=== PATIENT | female | born 1940 | race Caucasian/White ===

== ENCOUNTER → 2021-07-22 | Outpatient (CLI) | payer MEDICARE ==
[2021-07-22 18:24] LABS: Basophils # (A) 0.07 X 10*3/uL (0.00-0.10); Basophils % (A) 1.2 %; Eosinophils # (A) 0.25 X 10*3/uL (0.04-0.35); Eosinophils % (A) 4.2 %; HCT 40.2 % (37.2-46.3); HGB 12.5 g/dL (12.0-15.0); Immature Grans, Automated 0.3 %; Lymphocytes # (A) 0.95 X 10*3/uL (0.90-5.00); Lymphocytes % (A) 15.9 %; MCHC 31.1 g/dL (32.0-37.0); MCV 89.9 fL (80.0-97.0); Mean Platelet Volume 9.8 fL (9.5-12.2); Monocytes # (A) 0.56 X 10*3/uL (0.20-1.00); Monocytes % (A) 9.4 %; NRBC Per 100 WBC 0 /100 WBCS (0.0-0.0); Neutrophils # (A) 4.13 X 10*3/uL (1.80-7.70); Platelet Count 341 X 10*3/uL (140-440); RBC 4.47 X 10*6/uL (4.10-5.20); RDW 14.2 % (11.5-14.5); WBC 5.98 X 10*3/uL (4.50-10.00)
[2021-07-22 20:17] LABS: African American GFR (CKD) 81.3 (60.0-200.0); Anion Gap 13.6 mmol/L (10.00-18.00); Blood Urea Nitrogen 16.2 mg/dL (9.0-27.0); Carbon Dioxide 25.4 mmol/L (20.0-27.5); Non-African American GFR(CKD) 70.1 (60.0-200.0); Potassium 5.2 mmol/L (3.5-5.5)
== END | disposition home or self-care (01) ==
LOC: LABPAT 11:36
PROVIDERS: ATTEND Obstetrics & Gynecology
DX: Z01.812 Encounter for preprocedural laboratory examination (principal); I10 Essential (primary) hypertension; N81.11 Cystocele, midline
CPT/HCPCS: 80051; 82565; 82947; 84520; 85025; 87086

== ENCOUNTER 2021-07-30 06:31 | Day surgery (SDC) | payer MEDICARE ==
[2021-07-25 16:11] VITALS: BMI 25.4
[~2021-07-30 06:31] MED LIST: LIDOCAINE 1% (10MG/ML) FOR IV START INTRADERMA PRN; ONDANSETRON 4 MG/2 ML VIAL IVP ONE
[2021-07-30] MEDS ORDERED: HYDROmorphone 0.5 MG/0.5 ML SYRINGE IVP PRN (07:00)
[2021-07-30] MEDS: LACTATED RINGERS 1,000 ML IV SCH ×2 (07:17→10:53)
[2021-07-30] MEDS ORDERED: MIDAZOLAM 2 MG/2 ML VIAL ONE (07:43)
[2021-07-30] MEDS ORDERED: MORPHINE SULFATE (PF) 0.3 MG/0.3 ML SYR ONE (07:43)
[2021-07-30] MEDS ORDERED: fentaNYL (PF) 50 MCG/ML 2 ML AMP ONE (07:43)
[2021-07-30] MEDS ORDERED: PROPOFOL 10 MG/ML 20 ML VIAL IV ONE (07:43)
[2021-07-30] MEDS ORDERED: VASOPRESSIN 20 UNIT/ML 1 ML VIAL SQ ONE ×2 (08:06)
[2021-07-30] MEDS ORDERED: BACITRACIN ZINC 500 UNIT/GM OINT 28.4 GM TUBE TOPICAL ONE (08:10)
[2021-07-30] MEDS ORDERED: IBUPROFEN 600 MG TAB PO PRN (08:58)
[2021-07-30] MEDS ORDERED: KETOROLAC 30 MG/ML 1 ML VIAL IVP PRN (08:58)
[2021-07-30] MEDS ORDERED: ONDANSETRON 4 MG/2 ML VIAL IVP PRN (08:58)
[2021-07-30] MEDS ORDERED: diphenhydrAMINE 50 MG/ML 1 ML VIAL IVP PRN (08:58)
[2021-07-30] MEDS ORDERED: SIMETHICONE 80 MG CHEWABLE PO PRN (08:58)
--- NOTE | 2021-07-30 08:58 | P.OP ---
Date of Procedure: 07/30/21 Preoperative Diagnosis: Increasingly symptomatic grade 4 uterine prolapse, grade 3 cystocele. Postoperative Diagnosis: Same, normal-appearing left ovary Procedure(s) Performed: Vaginal hysterectomy, anterior colporrhaphy Anesthesia: ANDREASA Surgeon: Yoana Maher Mainframe Systems Engineer #1: Maki Driver Estimated Blood Loss (ml): 20 IV fluids (ml): 500 Urine output (ml): 100 Pathology: other (Cervix and uterus) Condition: stable Disposition: PACU Operative Findings: Normal-appearing left ovary. Right ovary surgically absent. Small asymptomatic rectocele Description of Procedure: Patient is brought to the operating suite where a general anesthetic is administered after the patient is given a spinal with Duramorph. She's placed in the dorsal lithotomy position. Antibiotics were given. The appropriate timeout was performed to assure proper patient and procedural identification. Perineal body is prepped and draped in usual sterile fashion. Weighted speculum was placed into the vagina. Bladder is drained for approximately 100 mL of clear yellow urine. The cervix is grasped with a double-tooth tenaculum and the cervix is injected circumferentially with a dilute Pitressin solution. Childress blade scalpel is used to incise the mucosa circumferentially with a V positioning at 6:00. Sponge rolled finger is used to sweep the mucosa away from the underlying fascial plane, and at all times the mucosa is swept high to avoid bladder and/or ureteral injury. Peritoneum is entered at 6:00 with a Metzenbaum scissor, suture tied with 2-0 Vicryl, and the large billed speculum is placed. The right uterosacral ligament is identified, clamped cut and suture ligated. It is held laterally with a hemostat. Same procedure is carried out contralaterally. Uterine vasculature is skeletonized, clamped cut and suture ligated. Uterus is then "walked out" posteriorly. Anterior peritoneum is entered at 12:00. Jenni clamps are used around the final pedicles and the cervix and uterus are removed and sent to pathology for evaluation. Vicryl sutures used now in a Gianni stitch to tie insecure, flashed, and retied a pedicles for excellent hemostasis. The right ovary has been surgically removed, the left ovary appears atrophic and left in situ per the patient's wishes. The speculum is then switched to the shallow billed speculum. The 2-0 Vicryl suture at 6:00 is brought around in a pursestring fashion to close the peritoneum. Hemostasis again is excellent. The uterosacral cardinal ligaments on now brought across to incorporate the opposite ligament as well as vaginal mucosa. 2 additional [id number] sutures are used of 0 Vicryl to close the vaginal cough. Allis clamps are used on the anterior most portion and the cystocele repair is commenced. The same dilute Pitressin solution is used to inject the mucosa in the midline to approximately 1.5 cm inferior to the urethra. Sponge rolled finger is used to sweep the underlying fascial edge from the overlying mucosa. King catheter is placed, urine is clear. 2-0 Vicryl sutures used in an interrupted fashion now to bring the fascial edges together to completely obliterate the cystocele. Metzenbaum scissors are used to trim the mucosa. 2-0 Vicryl sutures used in a running locking stitch to close the mucosa. Hemostasis is excellent. Vagina is packed with one-inch iodophor gauze with basic tracing. King is noted to be draining clear urine. All sponge needle and enhancement counts are correct. Patient is brought back to recovery room in excellent condition with stable vital signs including blood pressure 115/51, pulse 64, 100% O2 saturation.
[2021-07-30 16:34] VITALS: RESP 16
[2021-07-30] MEDS ORDERED: amLODIPine 5 MG TAB PO STA ×2 (16:34→21:01)
[2021-07-30] MEDS ORDERED: KETOROLAC 15 MG/ML 1 ML VIAL IVP PRN (16:41)
[2021-07-31] MEDS: LACTATED RINGERS 1,000 ML IV SCH (06:45)
--- NOTE | 2021-07-31 07:32 | P.PN ---
Progress Note - Text Progress Note Date: 07/31/21 (271) Anesthesia Postop day 1 Subjective: Status Post section with Duramorph. Patient seen and examined. Doing well without complaint. VAS 0. Denies pruritus and nausea. Had some vomiting yesterday which resolved with medications.. Afebrile. Gross lower extremity strength intact. . Without apparent anesthetic complications. Objective: Vital signs reviewed Heart: Regular Rate Lungs: Good chest excursion Abdomen: Appears nondistended Assessment: Status post with Duramorph postop day 1 Plan: Continue current care with your medical management.
--- NOTE | 2021-07-31 08:19 | P.DS ---
Providers Date of admission: 07/30/21 Expected date of discharge: 07/31/21 Attending physician: Yoana Maher Primary care physician: Stated None Hospital Course: This is a 80-year-old female who presented with increasingly symptomatic uterine prolapse and cystocele for surgical repair. Option of pessary was discussed and declined. Preoperative clearance was given. Please see dictated history and physical for details. Yesterday patient underwent a vaginal hysterectomy and anterior colporrhaphy. She did well intraoperatively. The left ovary appeared normal, right ovary surgically absent. Please see dictated operative note for details. This morning the patient is doing well. King catheter and vaginal packing had been removed. Patient had some confusion last night but appears well oriented this morning. Extremities are negative. Chest is clear. Norvasc 5 mg twice a day has been reinstituted. Patient is judged to be in good condition for discharge home pending successful bladder training. She will follow-up with me in the office in 2 weeks. I have reminded her no intercourse, tampons or douching. She will use [id number] Advil or Aleve, or Motrin as needed for pain. She will call with any fevers shakes or chills, foul smelling or copious lochia, with any vaginal bleeding, or any pain not alleviated by [id number] products. No driving for 2 weeks. No heavy lifting. Call with any issues concerns or questions. Assessment: Doing well postoperative day #1 Patient Condition at Discharge: Good Plan - Discharge Summary Discharge Rx Participant: No New Discharge Prescriptions: No Action Latanoprost [Xalatan 0.005%] 1 drop BOTH EYES BID amLODIPine [Norvasc] 5 mg PO DAILY PRN PRN Reason: Blood Pressure - High Discharge Medication List Latanoprost [Xalatan 0.005%] 1 drop BOTH EYES BID 07/25/21 [History] amLODIPine [Norvasc] 5 mg PO DAILY PRN 07/25/21 [History] Follow up Appointment(s)/Referral(s): Yoana Maher MD [STAFF PHYSICIAN] - 2 Weeks
[2021-07-31 08:55] VITALS: BP 147/64; PULSE 87; TEMP 98.2
[2021-07-31] MEDS ORDERED: ACETAMINOPHEN TAB 325 MG TAB PO PRN (08:59)
[2021-07-31] MEDS ORDERED: amLODIPine 5 MG TAB PO SCH (09:00)
== END 2021-07-31 11:40 | disposition home or self-care (01) ==
LOC: OR 06:31 → 4FBP 08:46 → OR 07-31 11:40
PROVIDERS: ATTEND Obstetrics & Gynecology
DX: N81.3 Complete uterovaginal prolapse (principal); J45.909 Unspecified asthma, uncomplicated; I10 Essential (primary) hypertension; E07.9 Disorder of thyroid, unspecified; Z90.49 Acquired absence of other specified parts of digestive tract; Z90.721 Acquired absence of ovaries, unilateral; I83.90 Asymptomatic varicose veins of unspecified lower extremity; Z79.899 Other long term (current) drug therapy
CPT/HCPCS: 84132; 88307; 58260; 57240; J2250; J0690; J2405; J2274; J3010; J1885; J2704; 86850; 86900; 86901

== ENCOUNTER 2024-02-02 21:03 | Inpatient (IN) | payer MEDICARE ==
--- NOTE | 2024-02-02 21:25 | ED ---
Arrhythmia/Palpitations HPI - General Stated Complaint: Syncope Time Seen by Provider: 02/02/24 21:04 Source: patient Mode of arrival: EMS Limitations: no limitations - History of Present Illness Initial Comments: This patient is an 83-year-old woman who was transferred here from [facility]. The patient had gone there for having had syncopal episode while seated in a chair, and then had been found to have a run of V. tach, reportedly 15 beats. The patient does not recall having any symptoms related to this. She is denying chest pain, dyspnea, nausea vomiting, diaphoresis. Workup at the other hospital included CT of the brain that was reported as no acute change from previous CT. Chest x-ray that was read as negative. The patient had CBC and chemistries that were normal, negative troponin. MD Complaint: irregular heart beat -: hour(s) Context: occurred during rest Arrhythmia History: other Associated Symptoms: denies other symptoms - Related Data Home Medications Medication Instructions Recorded Confirmed Latanoprost [Xalatan 0.005%] 1 drop BOTH EYES HS 07/25/21 02/03/24 Brimonidine Tartrate/Timolol 1 drop BOTH EYES QAM 02/03/24 02/03/24 [Brimonidine-Timolol 0.2%-0.5%] Previous Rx's Medication Instructions Recorded Aspirin 81 mg PO DAILY tab 02/06/24 Atorvastatin [Lipitor] 40 mg PO HS #30 tab 02/06/24 Metoprolol Tartrate [Lopressor] 50 mg PO BID #60 tab 02/06/24 Allergies Allergy/AdvReac Type Severity Reaction Status Date / Time No Known Allergies Allergy Verified 02/03/24 07:31 Review of Systems ROS Statement: Those systems with pertinent positive or pertinent negative responses have been documented in the HPI. ROS Other: All systems not noted in ROS Statement are negative. Constitutional: Denies: fever, chills, weakness Respiratory: Denies: cough, dyspnea Cardiovascular: Denies: chest pain, palpitations, edema Gastrointestinal: Denies: abdominal pain, nausea, vomiting, diarrhea Genitourinary: Denies: dysuria, hematuria Musculoskeletal: Denies: back pain Skin: Denies: rash Neurological: Denies: headache, weakness, numbness Past Medical History Past Surgical History: Appendectomy Smoking Status: Never smoker Past Alcohol Use History: None Reported Past Drug Use History: None Reported General Exam Limitations: no limitations General appearance: alert, in no apparent distress Head exam: Present: atraumatic, normocephalic Eye exam: Present: normal appearance. Absent: scleral icterus, conjunctival injection ENT exam: Present: normal oropharynx Neck exam: Present: normal inspection Respiratory exam: Present: normal lung sounds bilaterally. Absent: respiratory distress, wheezes, rales, rhonchi, stridor, accessory muscle use Cardiovascular Exam: Present: regular rate, normal rhythm, normal heart sounds. Absent: systolic murmur, diastolic murmur, rubs, gallop GI/Abdominal exam: Present: soft. Absent: distended, tenderness, guarding, rebound, rigid, mass Extremities exam: Present: normal inspection, normal capillary refill. Absent: pedal edema, calf tenderness Back exam: Present: normal inspection. Absent: CVA tenderness (R), CVA tenderness (L) Neurological exam: Present: alert Skin exam: Present: warm, dry, intact, normal color. Absent: rash Course Vital Signs 02/02/24 02/02/24 02/03/24 21:08 23:53 00:00 Temperature 98.5 F Pulse Rate 93 78 79 Pulse Rate [ Roofing Sales Representative ] Respiratory 18 18 18 Rate Blood Pressure 195/98 169/72 O2 Sat by Pulse 97 95 97 Oximetry 02/03/24 02/03/24 02/03/24 01:08 02:35 04:18 Temperature Pulse Rate 84 84 84 Pulse Rate [ Roofing Sales Representative ] Respiratory 17 17 18 Rate Blood Pressure 130/68 151/72 161/74 O2 Sat by Pulse 97 97 97 Oximetry 02/03/24 02/03/24 02/03/24 05:00 08:00 10:00 Temperature Pulse Rate 78 82 Pulse Rate [ 80 Roofing Sales Representative ] Respiratory 18 18 16 Rate Blood Pressure 141/62 146/68 O2 Sat by Pulse 97 97 Oximetry 02/03/24 02/03/24 13:04 14:47 Temperature 98.1 F Pulse Rate 81 71 Pulse Rate [ Roofing Sales Representative ] Respiratory 18 18 Rate Blood Pressure 133/76 133/76 O2 Sat by Pulse 97 Oximetry EKG Findings - EKG Comments: EKG Findings:: Possible old septal infarct - EKG Results: EKG: interpreted by MARISELA, sinus rhythm (94 bpm), normal axis, normal ST/T Medical Decision Making - Medical Decision Making I reviewed the transfer paperwork. There is a strip that includes the reported arrhythmia that appears to me to be mostly artifactual as the patient's QRS complexes do appear to March through the portion in question. Patient will be admitted to have telemetry and cardiology consultation. She is stable at admission. Was pt. sent in by a medical professional or institution (, GISELA, [employer], urgent care, hospital, or correction...) When possible be specific @ -Transferred here from outside hospital to have further cardiology evaluation Did you speak to anyone other than the patient for history (EMS, parent, family, police, friend...)? What history was obtained from this source @ -[No] Did you review nursing and triage notes (agree or disagree)? Why? @ -[I reviewed and agree with nursing and triage notes] Were old charts reviewed (outside hosp., previous admission, EMS record, old EKG, old radiological studies, urgent care reports/EKG's, correction records)? Report findings @ -[I reviewed the transfer charts Differential Diagnosis (chest pain, altered mental status, abdominal pain women, abdominal pain men, vaginal bleeding, weakness, fever, dyspnea, syncope, headache, dizziness, GI bleed, back pain, seizure, CVA, palpatations, mental health, musculoskeletal)? @ -[Differential Syncope: Valvular disease, hypertrophic cardiomyopathy, pulmonary embolism, tamponade, tachycardia, bradycardia, RI, hypovolemia, hemorrhage, dissection, anemia, intracranial hemorrhage, seizure, hypoglycemia, carbon monoxide poisoning, this is not meant to be an all-inclusive list. EKG interpreted by me (3pts min.). @ -[As above] X-rays interpreted by me (1pt min.). @ -[None done] CT interpreted by me (1pt min.). @ -[None done] U/S interpreted by me (1pt. min.). @ -[None done] What testing was considered but not performed or refused? (CT, X-rays, U/S, labs)? Why? @ -[None] What meds were considered but not given or refused? Why? @ -[None] Did you discuss the management of the patient with other professionals (professionals i.e. , GISELA, [employer]ER, lab, RT, psych nurse, social human services assistants, credit risk associate, teacher, safety security officer, case planner)? Give summary @ -[Case discussed with admitting physician and treatment recommendations incorporated Was smoking cessation discussed for >3mins.? @ -[No] Was critical care preformed (if so, how long)? @ -[No] Were there social determinants of health that impacted care today? How? (Homelessness, low income, unemployed, alcoholism, drug addiction, transportation, low edu. Level, literacy, decrease access to med. care, assisted, rehab)? @ -[No] Was there de-escalation of care discussed even if they declined (Discuss DNR or withdrawal of care, Hospice)? DNR status @ -[No] What co-morbidities impacted this encounter? (DM, HTN, Smoking, COPD, CAD, Cancer, CVA, ARF, Chemo, Hep., AIDS, mental health diagnosis, sleep apnea, morbid obesity)? @ -[None] Was patient admitted / discharged? Hospital course, mention meds given and route, prescriptions, significant lab abnormalities, going to OR and other pertinent info. @ -[Patient is an 83-year-old woman sent to have cardiology evaluation after syncopal episode and concerns about possible V. tach Undiagnosed new problem with uncertain prognosis? @ -[No] Drug Therapy requiring intensive monitoring for toxicity (Heparin, Nitro, Insulin, Cardizem)? @ -[No] Were any procedures done? @ -[No] Diagnosis/symptom? @ -Acute syncopal episode Acute, or Chronic, or Acute on Chronic? @ -[Acute Uncomplicated (without systemic symptoms) or Complicated (systemic symptoms)? @ -[Uncomplicated Side effects of treatment? @ -[No] Exacerbation, Progression, or Severe Exacerbation? @ -[No] Poses a threat to life or bodily function? How? (Chest pain, USA, RI, pneumonia, PE, COPD, DKA, ARF, appy, cholecystitis, CVA, Diverticulitis, Homicidal, Suicidal, threat to staff... and all critical care pts) @ -[Requires further evaluation - Lab Data Result diagrams: 02/02/24 21:26 02/03/24 05:17 Lab Results 02/02/24 02/02/24 02/02/24 Range/Units 21:26 21:26 21:26 WBC 6.5 (3.8-10.6) k/uL RBC 4.61 (3.80-5.40) m/uL Hgb 13.2 (11.4-16.0) gm/dL Hct 41.6 (34.0-46.0) % MCV 90.3 (80.0-100.0) fL MCH 28.7 (25.0-35.0) pg MCHC 31.7 (31.0-37.0) g/dL RDW 13.0 (11.5-15.5) % Plt Count 335 (150-450) k/uL MPV 7.1 Neutrophils % 71 % Lymphocytes % 16 % Monocytes % 6 % Eosinophils % 4 % Basophils % 1 % Neutrophils # 4.6 (1.3-7.7) k/uL Lymphocytes # 1.1 (1.0-4.8) k/uL Monocytes # 0.4 (0-1.0) k/uL Eosinophils # 0.3 (0-0.7) k/uL Basophils # 0.1 (0-0.2) k/uL Sodium 141 (137-145) mmol/L Potassium 4.1 (3.5-5.1) mmol/L Chloride 106 (98-107) mmol/L Carbon Dioxide 27 (22-30) mmol/L Anion Gap 8 mmol/L BUN 20 H (7-17) mg/dL Creatinine 0.71 (0.52-1.04) mg/dL Est GFR (CKD-EPI) (>=60) Est GFR (CKD-EPI)AfAm >90 (>60 ml/min/1.73 sqM) Est GFR (CKD-EPI)NonAf 80 (>60 ml/min/1.73 sqM) BUN/Creatinine Ratio (12.00-20.00) Ratio Glucose 102 H (74-99) mg/dL Calcium 10.1 (8.4-10.2) mg/dL Magnesium 2.1 (1.6-2.3) mg/dL Total Bilirubin 0.5 (0.2-1.3) mg/dL AST 25 (14-36) U/L ALT 12 (4-34) U/L Alkaline Phosphatase 58 (38-126) U/L Troponin I <0.012 (0.000-0.034) ng/mL Total Protein 7.1 (6.3-8.2) g/dL Albumin 4.4 (3.5-5.0) g/dL Triglycerides (0.00-149.00) mg/dL Cholesterol (0.00-200.00) mg/dL LDL Cholesterol, Calc (0.0-131.0) mg/dL VLDL Cholesterol, Calc (5.00-40.00) mg/dL HDL Cholesterol (40.00-60.00) mg/dL Cholesterol/HDL Ratio Ratio TSH (0.350-5.500) UIU/ML 02/03/24 02/03/24 02/03/24 Range/Units 01:02 05:17 05:17 WBC (3.8-10.6) k/uL RBC (3.80-5.40) m/uL Hgb (11.4-16.0) gm/dL Hct (34.0-46.0) % MCV (80.0-100.0) fL MCH (25.0-35.0) pg MCHC (31.0-37.0) g/dL RDW (11.5-15.5) % Plt Count (150-450) k/uL MPV Neutrophils % % Lymphocytes % % Monocytes % % Eosinophils % % Basophils % % Neutrophils # (1.3-7.7) k/uL Lymphocytes # (1.0-4.8) k/uL Monocytes # (0-1.0) k/uL Eosinophils # (0-0.7) k/uL Basophils # (0-0.2) k/uL Sodium 141 (137-145) mmol/L Potassium 3.9 (3.5-5.1) mmol/L Chloride 104 (98-107) mmol/L Carbon Dioxide 25.7 (22-30) mmol/L Anion Gap 11.30 mmol/L BUN 15.1 (7-17) mg/dL Creatinine 0.7 (0.52-1.04) mg/dL Est GFR (CKD-EPI) 86 (>=60) Est GFR (CKD-EPI)AfAm (>60 ml/min/1.73 sqM) Est GFR (CKD-EPI)NonAf (>60 ml/min/1.73 sqM) BUN/Creatinine Ratio 21.57 H (12.00-20.00) Ratio Glucose 99 (74-99) mg/dL Calcium 9.4 (8.4-10.2) mg/dL Magnesium 2.0 (1.6-2.3) mg/dL Total Bilirubin (0.2-1.3) mg/dL AST (14-36) U/L ALT (4-34) U/L Alkaline Phosphatase (38-126) U/L Troponin I <0.012 <0.012 (0.000-0.034) ng/mL Total Protein (6.3-8.2) g/dL Albumin (3.5-5.0) g/dL Triglycerides 72.30 (0.00-149.00) mg/dL Cholesterol 262.00 H (0.00-200.00) mg/dL LDL Cholesterol, Calc 178.0 H (0.0-131.0) mg/dL VLDL Cholesterol, Calc 14.46 (5.00-40.00) mg/dL HDL Cholesterol 69.50 H (40.00-60.00) mg/dL Cholesterol/HDL Ratio 3.77 Ratio TSH 1.060 (0.350-5.500) UIU/ML Disposition Clinical Impression: Syncope Disposition: ADMITTED IP TO THIS HOSP Is patient prescribed a controlled substance at d/c from ED?: No
[2024-02-02 21:41] LABS: Basophils # (A) 0.1 k/uL (0-0.2); Basophils % (A) 1 %; Eosinophils # (A) 0.3 k/uL (0-0.7); Eosinophils % (A) 4 %; HCT 41.6 % (34.0-46.0); HGB 13.2 gm/dL (11.4-16.0); Lymphocytes # (A) 1.1 k/uL (1.0-4.8); Lymphocytes % (A) 16 %; MCH 28.7 pg (25.0-35.0); MCHC 31.7 g/dL (31.0-37.0); MCV 90.3 fL (80.0-100.0); Mean Platelet Volume 7.1; Monocytes # (A) 0.4 k/uL (0-1.0); Monocytes % (A) 6 %; Neutrophils # (A) 4.6 k/uL (1.3-7.7); Neutrophils % (A) 71 %; Platelet Count 335 k/uL (150-450); RBC 4.61 m/uL (3.80-5.40); WBC 6.5 k/uL (3.8-10.6)
[2024-02-02 21:55] LABS: ALT 12 U/L (4-34); AST 25 U/L (14-36); African American GFR (CKD) >90 (>60 ml/min/1.73 sqM); Albumin 4.4 g/dL (3.5-5.0); Alkaline Phosphatase 58 U/L (38-126); Anion Gap 8 mmol/L; Blood Urea Nitrogen 20 mg/dL (7-17); Calcium 10.1 mg/dL (8.4-10.2); Carbon Dioxide 27 mmol/L (22-30); Chloride 106 mmol/L (98-107); Glucose 102 mg/dL (74-99); Magnesium 2.1 mg/dL (1.6-2.3); Non-African American GFR(CKD) 80 (>60 ml/min/1.73 sqM); Potassium 4.1 mmol/L (3.5-5.1); Sodium 141 mmol/L (137-145); Total Bilirubin 0.5 mg/dL (0.2-1.3); Total Protein 7.1 g/dL (6.3-8.2)
[2024-02-02] MEDS ORDERED: NITROGLYCERIN SL TABS 0.4 MG TAB SUBLINGUAL PRN (22:04)
[2024-02-02] MEDS ORDERED: amLODIPine 10 MG TAB PO PRN (22:24)
[2024-02-02] MEDS: SODIUM CHLORIDE 0.9% 1,000 ML IV SCH (23:49)
[2024-02-03] MEDS ORDERED: DOBUTamine DRIP for NUC MED 500 MG in DEXTROSE/WATER 1 250ML.BAG IV PRN (07:28)
[2024-02-03] MEDS: ASPIRIN 325 MG TAB PO SCH (08:32)
[2024-02-03 08:59] LABS: BUN/Creat Ratio 21.57 Ratio (12.00-20.00); Blood Urea Nitrogen 15.1 mg/dL (9.0-27.0); Calcium 9.4 mg/dL (8.7-10.3); Carbon Dioxide 25.7 mmol/L (21.6-31.8); Chloride 104 mmol/L (96-109); Chol/HDL Ratio 3.77 Ratio; Glucose 99 mg/dL (70-110); Potassium 3.9 mmol/L (3.5-5.5); Sodium 141 mmol/L (135-145); VLDL Calculation 14.46 mg/dL (5.00-40.00)
[2024-02-03] MEDS ORDERED: DOBUTamine DRIP for NUC MED 500 MG/250 ML BAG IV ONE (09:00)
[2024-02-03] MEDS: LATANOPROST 0.005% OPHTH DROPS 2.5 ML BTL BOTH EYES SCH (09:21)
--- NOTE | 2024-02-03 10:13 | P.CRDCN ---
History of Present Illness History of present illness: HISTORY OF PRESENT ILLNESS: This is a 83-year-old female with a past medical history significant for hypertension and mild dementia. Patient does not follow with a art museum aide. We have been asked to see the patient in consultation for possible arrhythmia. Patient examined at the bedside by Dr. Bach. Patient was initially taken to [facility] for an episode of syncope. The provider at the outside facility apparently thought the patient had a run of V. tach and the patient was transferred to [facility]. Dr. Charles reviewed telemetry tracings which appear to be artifact. The patient denies any chest pain or pressure. She denies any shortness of breath. Vital signs are stable. DIAGNOSTICS: - EKG reveals sinus mechanism with no signs of acute ischemia - Laboratory data: WBC 6.5. Hemoglobin 13.2. Platelet count 335. Sodium 141. Potassium 3.9. BUN 15. Creatinine 0.7. Magnesium 2.1. Troponin negative x 3. - Current home cardiac medications include amlodipine 2.5 mg daily REVIEW OF SYSTEMS: At the time of my exam: CONSTITUTIONAL: Denies fever or chills. HEENT: Denies blurred vision, vision changes, or eye pain. Denies hemoptysis CARDIOVASCULAR: Denies chest pain. Denies orthopnea. Denies PND. Denies palpitations RESPIRATORY: Denies shortness of breath. GASTROINTESTINAL: Denies abdominal pain. Denies nausea or vomiting. HEMATOLOGIC: Denies bleeding disorders. GENITOURINARY: Denies any blood in urine. SKIN: Denies pruitis. Denies rash. PHYSICAL EXAM: VITAL SIGNS: Reviewed. GENERAL: Well-developed in no acute distress. HEENT: Head is normocephalic. Pupils are equal, round. Sclerae anicteric. Mucous membranes of the mouth are moist. Neck supple. No JVD or thyromegaly LUNGS: Respirations even and unlabored. Lungs essentially clear to auscultation bilaterally. HEART: Regular rate and rhythm. S1 and S2 heard. ABDOMEN: Soft. Nondistended. Nontender. EXTREMITIES: Normal range of motion. No clubbing or cyanosis. Peripheral pul ses intact. No lower extremity edema NEUROLOGIC: Awake and alert. Oriented x 3. ASSESSMENT: Episode of unresponsiveness, etiology unclear Ventricular tachycardia, ruled out, telemetry reveals artifact Hypertension Mild dementia PLAN: In acute coronary event has been ruled out Obtain 2D echo to assess cardiac structure and function Resume home cardiac medications Patient to undergo dobutamine stress echo today Consult neurology for evaluation If negative, she may be discharged home from a cardiac standpoint Nurse practitioner note has been reviewed by physician. Signing provider agrees with the documented findings, assessment, and plan of care documented by MACHINE CASTINGS PLASTERER as a scribe. Past Medical History Past Surgical History: Appendectomy Smoking Status: Never smoker Past Alcohol Use History: None Reported Past Drug Use History: None Reported Medications and Allergies Home Medications Medication Instructions Recorded Confirmed Type Latanoprost [Xalatan 0.005%] 1 drop BOTH EYES HS 07/25/21 02/03/24 History Brimonidine Tartrate/Timolol 1 drop BOTH EYES QAM 02/03/24 02/03/24 History [Brimonidine-Timolol 0.2%-0.5%] Memantine [Namenda] 10 mg PO HS 02/03/24 02/03/24 History amLODIPine [Norvasc] 2.5 mg PO DAILY@1400 02/03/24 02/03/24 History Allergies Allergy/AdvReac Type Severity Reaction Status Date / Time No Known Allergies Allergy Verified 02/03/24 07:31 Physical Exam Vitals: Vital Signs Temp Pulse Pulse Resp BP Pulse Ox 02/03/24 08:00 80 18 02/03/24 05:00 78 18 141/62 97 02/03/24 04:18 84 18 161/74 97 02/03/24 02:35 84 17 151/72 97 02/03/24 01:08 84 17 130/68 97 02/03/24 00:00 79 18 169/72 97 02/02/24 23:53 78 18 95 02/02/24 21:08 98.5 F 93 18 195/98 97 Intake and Output 02/02/24 02/03/24 02/03/24 22:59 06:59 14:59 Other: Voiding Method Toilet Weight 55.792 kg Results 02/02/24 21:26 02/03/24 05:17 Cardiac Enzymes 02/02/24 02/02/24 02/03/24 Range/Units 21:26 21:26 01:02 AST 25 (14-36) U/L Troponin I <0.012 <0.012 (0.000-0.034) ng/mL 02/03/24 Range/Units 05:17 AST (14-36) U/L Troponin I <0.012 (0.000-0.034) ng/mL Lipids 02/03/24 Range/Units 05:17 Triglycerides 72.30 (0.00-149.00) mg/dL Cholesterol 262.00 H (0.00-200.00) mg/dL HDL Cholesterol 69.50 H (40.00-60.00) mg/dL Cholesterol/HDL Ratio 3.77 Ratio CBC 02/02/24 Range/Units 21:26 WBC 6.5 (3.8-10.6) k/uL RBC 4.61 (3.80-5.40) m/uL Hgb 13.2 (11.4-16.0) gm/dL Hct 41.6 (34.0-46.0) % Plt Count 335 (150-450) k/uL Comprehensive Metabolic Panel 02/02/24 02/03/24 Range/Units 21:26 05:17 Sodium 141 141 (137-145) mmol/L Potassium 4.1 3.9 (3.5-5.1) mmol/L Chloride 106 104 (98-107) mmol/L Carbon Dioxide 27 25.7 (22-30) mmol/L BUN 20 H 15.1 (7-17) mg/dL Creatinine 0.71 0.7 (0.52-1.04) mg/dL Glucose 102 H 99 (74-99) mg/dL Calcium 10.1 9.4 (8.4-10.2) mg/dL AST 25 (14-36) U/L ALT 12 (4-34) U/L Alkaline Phosphatase 58 (38-126) U/L Total Protein 7.1 (6.3-8.2) g/dL Albumin 4.4 (3.5-5.0) g/dL Current Medications Generic Name Dose Route Start Last Admin Trade Name Freq PRN Reason Stop Dose Admin Amlodipine Besylate 5 mg 02/02/24 22:24 Amlodipine 10 Mg Tab PO DAILY PRN Blood Pressure - High Aspirin 325 mg 02/03/24 09:00 02/03/24 08:32 Aspirin 325 Mg Tab PO 325 mg DAILY CHRISTOPHER Administration Sodium Chloride 1,000 mls @ 20 mls/hr 02/02/24 22:15 02/02/24 23:49 Saline 0.9% IV 20 mls/hr .Q24H CHRISTOPHER Administration Dobutamine HCl/Dextrose 500 mg 250 mls @ 16.738 mls/hr 02/03/24 07:28 / IV Solution IV 02/03/24 11:28 .[id number] PRN Per Protocol Protocol 10 MCG/KG/MIN Latanoprost 1 drops 02/03/24 09:00 02/03/24 09:21 Latanoprost 0.005% Ophth Drops 2.5 Ml Btl BOTH EYES 1 drops BID CHRISTOPHER Administration Nitroglycerin 0.4 mg 02/02/24 22:04 Nitroglycerin Sl Tabs 0.4 Mg Tab SUBLINGUAL Q5M PRN Chest Pain Intake and Output 02/02/24 02/03/24 02/03/24 22:59 06:59 14:59 Other: Voiding Method Toilet Weight 55.792 kg 02/02/24 21:26 02/03/24 05:17
[2024-02-03] MEDS: amLODIPine 2.5 MG TAB PO SCH (10:31)
--- NOTE | 2024-02-03 17:00 | P.CNNES ---
History of Present Illness Consult date: 02/03/24 Requesting physician: Osmar Bach Reason for Consult: syncope History of Present Illness: This is an 83-year-old man with a history of dementia, dizziness, hypertension transferred from outside facility for further evaluation of episode of V. tach. Cardiology consulted neurology for syncopal episode. History is obtained from patient and daughter who are at bedside yesterday between 3 and 4 PM he she had a syncopal episode while sitting in a chair according to . He stated the episode lasted for 30 minutes. Yesterday was her typical day in which she has chronic dizziness and that can be in the morning and afternoon and then they went out came back she sat on the chair just went away to do something for 5 minutes came back and she had syncopal spell her eyes were closed not responding but no jerking of any extremities. The episode lasted 30 minutes. No urinary or bowel incontinence or tongue bite. Did not have any warning sign prior to this. According to the daughter the patient had 5 similar episodes in the past. Predominantly most of the episodes are while she is sitting but she had episode of when she was walking she would fall and unknown reason. She has chronic dizziness for the last 2 years and it can be in the morning afternoon or later and it last for few hours with some headache. She was evaluated by Dr. Parra her neurologist as an outpatient and he did EEG and was told normal. Per family members there were notified by her neurologist that unknown cause of the dizziness. She also had MRI of the brain 2 years ago. She was evaluated possibly 2 years ago by a neurologist over in [place] for her dementia. Per family members she has initially mild but they think now it is moderate. They stated that her mood fluctuates day-to-day. Initially the pat ient was on Aricept but according to the family which could not tolerated and initially they thought it was the medication that was causing her to pass out. Then in the last 1 year and they have been on memantine and her family members do not feel it is helping. She does not have any history of seizures or stroke in the past. It seems that the patient was taken to [facility] for episode of syncope. It seems that the patient had a syncopal episode while seated in the chair but does not recall having any symptoms related to this. And at the outside facility apparently was thought the patient had a run of V. tach lasting for about 15 seconds so the patient was transferred to our facility for escalation of care. Facility patient had CT of the brain which was reported as no acute changes from previous CT. The raise miner did not feel that was V. tach and felt was artifact. Some other workup during this hospital visit consisted of: CBC with differential is unremarkable TSH is 1.06 Calcium, magnesium, AST ALT, sodium, creatinine are within normal limits. Review of Systems As per HPI. Past Medical History Past Medical History: Dementia History of Any Multi-Drug Resistant Organisms: None Reported Past Surgical History: Appendectomy Additional Past Surgical History / Comment(s): ovary removed Past Psychological History: Anxiety Smoking Status: Never smoker Past Alcohol Use History: None Reported Past Drug Use History: None Reported Medications and Allergies Home Medications Medication Instructions Recorded Confirmed Type Latanoprost [Xalatan 0.005%] 1 drop BOTH EYES HS 07/25/21 02/03/24 History Brimonidine Tartrate/Timolol 1 drop BOTH EYES QAM 02/03/24 02/03/24 History [Brimonidine-Timolol 0.2%-0.5%] Memantine [Namenda] 10 mg PO HS 02/03/24 02/03/24 History amLODIPine [Norvasc] 2.5 mg PO DAILY@1400 02/03/24 02/03/24 History Allergies Allergy/AdvReac Type Severity Reaction Status Date / Time No Known Allergies Allergy Verified 02/03/24 07:31 Physical Examination - Vital Signs Vital Signs: Vital Signs Temp Pulse Pulse Resp BP BP Pulse Ox 02/03/24 15:18 97.3 F L 78 16 179/79 98 02/03/24 14:47 71 18 133/76 97 02/03/24 13:04 98.1 F 81 18 133/76 02/03/24 10:00 82 16 146/68 97 02/03/24 08:00 80 18 02/03/24 05:00 78 18 141/62 97 02/03/24 04:18 84 18 161/74 97 02/03/24 02:35 84 17 151/72 97 02/03/24 01:08 84 17 130/68 97 02/03/24 00:00 79 18 169/72 97 02/02/24 23:53 78 18 95 02/02/24 21:08 98.5 F 93 18 195/98 97 Intake and Output 02/03/24 02/03/24 02/03/24 06:59 14:59 22:59 Other: Voiding Method Toilet Weight 55.792 kg GENERAL: The patient is lying in bed and is not in acute distress. NEUROLOGICAL: Limited for overall dementia Higher mental function: The patient is awake, alert, oriented to self, she is in the hospital. Correctly stated the month but the year she stated it was 2027. She is able to follow simple commands but she needed some cueing at times and I had to motivate her to pursue with following commands. No aphasia from limited language. Cranial nerves: The pupils are round, equal and reactive to light and accommodation. Pulls are round 3 mm bilaterally. Unable to assess the full visual street because of her cooperation. As well as extraocular movement is limited in assessment. No weakness. No dysarthria. Tongue is midline with moves [id number] without any difficulty. There is no evidence of any tongue bite. Motor: The strength is full to assess individual muscle strength because of her cooperation but she is able to lift up all extremities above gravity equally. Normal tone and bulk. Cerebellum: Unable to assess. Sensation: Unable to assess. Reflexes (right/left):Deferred because of her cooperation. Plantars are downgoing bilaterally. Results - Laboratory Findings CBC and BMP: 02/02/24 21:26 02/03/24 05:17 Abnormal Lab Findings: Abnormal Labs 02/02/24 02/03/24 21:26 05:17 BUN 20 H BUN/Creatinine Ratio 21.57 H Glucose 102 H Cholesterol 262.00 H LDL Cholesterol, Calc 178.0 H HDL Cholesterol 69.50 H Assessment and Plan Assessment: This is an 83-year-old woman with history of mild to moderate dementia, chronic dizziness, hypertension who had a syncopal episode and was taken to an outside facility. she passed out while sitting in the chair and the episode lasted for 30 minutes but no jerking of any extremities, foaming around the mouth, urinary or bowel incontinence or tongue bite. She had 5 similar episodes in the past and most of them were while she is sitting and then some episodes she would fall unknown reason. She has chronic dizziness and was evaluated by her neurologist as an outpatient of unknown etiology. She was taken to an outside facility it was felt patient had a run of V. tach lasting 15 seconds and was transferred to our facility for escalation of care. The EKG was reviewed and it was felt it was artifact. She had a CT of the brain at outside facility which was negative for any acute process. Recurrent Syncopal episode of unknown etiology Mild to Moderate dementia Chronic dizziness of unknown etiology (follows-up with her neurologist as outpatient and unknown cause) Hypertension Dyslipidemia Plan: I ordered MRI of the brain, carotid duplex, orthostatic vitals Ordered routine EEG Patient has 2D echo, stress test ordered by cardiology team Continue cardiac monitoring Patient is on aspirin 81 mg daily and Lipitor 40 mg nightly Will defer the rest of the medical management to primary and other specialist. The plan is discussed with patient and family members who are at bedside. Thank you for the consultation. Time with Patient: Greater than 30
--- NOTE | 2024-02-03 17:27 | CA ---
Transthoracic Echo Report Name: Dipika Lorenzo Age: 83 Gender: F : 1940 Exam Date: 02/03/2024 12:45 Exam Location: [facility] Ht (in): 67 Wt (lb): 123 Ordering Physician: Osmar Bach MD ([id number]) Attending/Referring Phys: Mikala SCHMID Suction Roller Saadia Denis RDCS Procedure CPT: Indications: arrhythmia Cardiac Hx: Technical Quality: Technically difficult study Contrast 1: Total Dose (mL): Contrast 2: Total Dose (mL): MEASUREMENTS (Male / Female) Normal Values 2D ECHO LV Diastolic Diameter PLAX 3.7 cm 4.2 - 5.9 / 3.9 - 5.3 cm LV Systolic Diameter PLAX 2.4 cm IVS Diastolic Thickness 0.9 cm 0.6 - 1.0 / 0.6 - 0.9 cm LVPW Diastolic Thickness 0.8 cm 0.6 - 1.0 / 0.6 - 0.9 cm LV Relative Wall Thickness 0.5 LVOT Diameter 2.0 cm Aortic Root Diameter 2.7 cm DOPPLER AV Peak Velocity 110.4 cm/s AV Peak Gradient 4.9 mmHg AV Mean Velocity 71.1 cm/s AV Mean Gradient 2.3 mmHg AV Velocity Time Integral 21.5 cm LVOT Peak Velocity 82.4 cm/s LVOT Peak Gradient 2.7 mmHg LVOT Velocity Time Integral 16.0 cm LVOT Stroke Volume 48.3 cm??? LVOT Stroke Volume Index 29.4 ml/m??? LVOT Cardiac Index 2361.0 cm???/min???m??? AV Area Cont Eq vti 2.2 cm??? AV Area Cont Eq pk 2.3 cm??? MV Area PHT 5.3 cm??? Mitral E Point Velocity 59.4 cm/s Mitral A Point Velocity 93.3 cm/s Mitral E to A Ratio 0.6 MV Deceleration Time 143.6 ms TR Peak Velocity 283.4 cm/s TR Peak Gradient 32.1 mmHg Right Atrial Pressure 5.0 mmHg Pulmonary Artery Systolic Pressu 37.1 mmHg Right Ventricular Systolic Press 37.1 mmHg PV Peak Velocity 80.1 cm/s PV Peak Gradient 2.6 mmHg FINDINGS Left Ventricle Left ventricular ejection fraction is estimated at 55-60 %. Left ventricular cavity size normal. Left ventricular wall thickness normal. No obvious regional wall motion abnormalities. Right Ventricle Normal right ventricular size and function. Mild pulmonary hypertension. Right Atrium Right atrium not well visualized. Left Atrium Left atrium not well visualized. Mitral Valve Structurally normal mitral valve. No evidence for mitral valve prolapse. No mitral stenosis. No mitral regurgitation. Aortic Valve Trileaflet aortic valve. No aortic valve stenosis or regurgitation. Tricuspid Valve Structurally normal tricuspid valve. No tricuspid stenosis. Mild tricuspid regurgitation. Pulmonic Valve Pulmonic valve not well visualized. No pulmonic stenosis. Trace pulmonic regurgitation. Pericardium No pericardial effusion. Aorta Aortic annulus normal. CONCLUSIONS Normal LV function Previewed by: Dr. Osmar Bach MD (Electronically Signed) Final Date: 03 February 2024 17:26
--- NOTE | 2024-02-03 17:31 | CA ---
Dobutamine Stress Echocardiogram Report Dipika Lorenzo Age: 83 Gender: F : 1940 Exam Date: 02/03/2024 12:00 Exam Location: [facility] Ordering Physician: Osmar Bach MD ([id number]) Referring Physician: Mikala SCHMID Turkish Rubber: Saadia Denis RDCS Technologist: Ht (in): 67 Wt (lb): 123 Procedure CPT: Indication: arrhythmia ICD-9 Codes: Rhythm: Patient History: Cardiac Medications: SEE CHART Medications in past 24 hours: Contrast: Definity Total Dose (mL): 2 Stress Results Protocol: Dobutamine Peak Dose (???g/kg/min): 40 Duration (min:sec): Atropine:(mg) Target HR: 117 Double Product: [id number] Resting HR: 72 Resting BP: 157 / 67 Peak HR: 122 Peak BP: 188 / 69 Max Predicted HR: 138 88 % Max Predicted HR Stress Summary: BP Response: Reason for Termination: Exceeded target heart rate (85% max predicted) Cardiac Symptoms: NO SYMPTOMS ECG Analysis Resting EKG: Normal sinus rhythm normal axis normal intervals Stress EKG: Patient was given dobutamine as per protocol achieving 88% of predicted maximal heart rate without chest pain or diagnostic ST segment depression Arrhythmia: Echo Analysis Base Echo Analysis: Normal left ventricle a size wall motion systolic function Low Echo Anaylsis: Normal Peak Echo Analysis: Normal hyperdynamic response Recovery Echo: Normal MEASUREMENTS (Male/Female) Normal Values CONCLUSIONS Negative stress test by EKG criteria Negative dobutamine stress echo Dr. Osmar Bach MD (Electronically Signed) Final Date: 03 February 2024 17:30
--- NOTE | 2024-02-03 17:57 | P.HPIM ---
History of Present Illness H&P Date: 02/03/24 Patient is an 83-year-old female who was transferred here from [facility] after her family noticed she was difficult to arouse while seated in a chair yesterday. Her daughter is at bedside providing most of the history. Her daughter states that the patient would respond but could not really open her eyes. She states that on the way to the hospital the patient seemed to recover. She states that this is the fifth time. At [facility] she was found to have a run of ventricular tachycardia reportedly 15 beats. The patient does not recall having any symptoms related to this. She denies chest pain, dyspnea, nausea, vomiting, diaphoresis. She is currently without chest pain, nausea, vomiting, dyspnea, diaphoresis, dizziness. She has a history of hypertension and dementia. At [facility]: Chest x-ray unremarkable. CT brain no acute changes from previous CT. At [facility]: CBC and CMP unremarkable. Negative troponin. On admission: Labs unremarkable. Afebrile, hypertensive 195/98. ED documentation reviewed. Review of systems: Pertinent positives and negatives as discussed in HPI, a complete review of systems was performed and all other systems are negative. Social history: Tobacco: Never smoker Alcohol: Denies Recreational drugs: Denies Travel: Denies Physical examination: Vital signs reviewed General: No acute distress Derm: No unusual rashes/lesions, warm Head: Atraumatic normocephalic, symmetric Eyes: EOMI, no lid lag, anicteric sclera, pupils equal round reactive to light ENT: Nose and ears atraumatic Neck: No cervical lymphadenopathy, trachea midline, supple Mouth: No lip lesion, mucus membranes moist Cardiovascular: S1S2 present, regular rate and rhythm, no murmurs/rubs/gallops Lungs: CTA bilateral, no rhonchi, no rales, no accessory muscle use Abdominal: Soft, nontender to palpation, no guarding Ext: No gross muscle atrophy, no contractures, bilateral dorsalis pedis pulses palpable, no edema Neuro: CN II-XI grossly intact, no gross focal neuro deficits Psych: Alert, oriented, appropriate affect and mood Assessment/Plan: #. Hypertension, uncontrolled Maintained on amlodipine 2.5 mg at home Echo pending Cardio consulted #. Somnolence prior to arrival, appears back to baseline MRI brain pending EEG pending Neurology consulted #. Dementia Maintained on memantine 10 mg at night DVT prophylaxis: SCD Chronic conditions: Hypertension, dementia The patient is admitted with an anticipated less than than 2 midnight stay for evaluation of somnolence/syncope. Discussed with: Patient and family Anticipated discharge place: Home Past Medical History Past Surgical History: Appendectomy Smoking Status: Never smoker Past Alcohol Use History: None Reported Past Drug Use History: None Reported Medications and Allergies Home Medications Medication Instructions Recorded Confirmed Type Latanoprost [Xalatan 0.005%] 1 drop BOTH EYES HS 07/25/21 02/03/24 History Brimonidine Tartrate/Timolol 1 drop BOTH EYES QAM 02/03/24 02/03/24 History [Brimonidine-Timolol 0.2%-0.5%] Memantine [Namenda] 10 mg PO HS 02/03/24 02/03/24 History amLODIPine [Norvasc] 2.5 mg PO DAILY@1400 02/03/24 02/03/24 History Allergies Allergy/AdvReac Type Severity Reaction Status Date / Time No Known Allergies Allergy Verified 02/03/24 07:31 Physical Exam Vitals: Vital Signs Temp Pulse Pulse Resp BP Pulse Ox 02/03/24 08:00 80 18 02/03/24 05:00 78 18 141/62 97 02/03/24 04:18 84 18 161/74 97 02/03/24 02:35 84 17 151/72 97 02/03/24 01:08 84 17 130/68 97 02/03/24 00:00 79 18 169/72 97 02/02/24 23:53 78 18 95 02/02/24 21:08 98.5 F 93 18 195/98 97 Intake and Output 02/02/24 02/03/24 02/03/24 22:59 06:59 14:59 Other: Voiding Method Toilet Weight 55.792 kg Results CBC & Chem 7: 02/02/24 21:26 02/03/24 05:17 Labs: Abnormal Lab Results - Last 24 Hours (Table) 02/02/24 Range/Units 21:26 BUN 20 H (7-17) mg/dL Glucose 102 H (74-99) mg/dL
[2024-02-03] MEDS: ATORVASTATIN 40 MG TAB PO SCH (20:39)
--- NOTE | 2024-02-03 21:16 | EEG ---
ELECTROENCEPHALOGRAM REPORT CLINICAL HISTORY: This is an 83-year-old woman with a syncopal episode. The video EEG is obtained to evaluate for seizure epileptiform activity. RELEVANT MEDICATION: Memantine. EEG TYPE: Routine EEG using 10/20 electrode system is performed. DESCRIPTION: Wakefulness and drowsiness are obtained. During awake state, the posterior-dominant rhythm consists of [id number] voltage of 8 Hz activity. There is no physiological stage 2 sleep architecture. There is no focal slowing. Interictal and ictal are none. ACTIVATION PROCEDURE: Photic stimulation did not evoke a posterior driving response. There is no abnormality during the photic stimulation. Hyperventilation is not performed. CLINICAL INTERPRETATION: This is a normal routine EEG. There is no focal slowing, epileptiform discharge, or seizure on the EEG. A normal routine EEG does not rule out underlying epilepsy. Clinical correlation is recommended. MG / NOÉ: [id number] / MTDD
--- NOTE | 2024-02-03 21:17 | US ---
EXAMINATION TYPE: US carotid duplex BILAT DATE OF EXAM: 02/03/2024 COMPARISON: NONE CLINICAL INDICATION: Female, 83 years old with history of syncope; Syncope TECHNIQUE: Carotid duplex ultrasound examination. Indirect Doppler criteria was utilized. FINDINGS: EXAM MEASUREMENTS: RIGHT: Peak Systolic Velocity (PSV) cm/sec ----- Right CCA: 73.0 ----- Right ICA: 141.0 ----- Right ECA: 147 ICA/CCA ratio: 1.93 RIGHT: End Diastole cm/sec ----- Right CCA: 12.8 ----- Right ICA: 22.0 ----- Right ECA: 9.02 LEFT: Peak Systolic Velocity (PSV) cm/sec ----- Left CCA: 76.6 ----- Left ICA: 157.0 ----- Left ECA: 173 ICA/CCA ratio: 2.05 LEFT: End Diastole cm/sec ----- Left CCA: 13.9 ----- Left ICA: 36.1 ----- Left ECA: 10.9 VERTEBRALS (direction of flow): Right Vertebral: Antegrade Left Vertebral: Antegrade Rhythm: Normal DELPHI DEVELOPER NOTES: Plaque seen in bilateral bifurcations. Mildly elevated velocities seen within bila teral ICA and ECA. IMPRESSION: 50-69% stenosis of the bilateral carotid bifurcations. By peak systolic velocity and ratio Criteria for Assigning % of Stenosis / Diameter reduction (Estimation based on the indirect measurements of the internal carotid artery velocities (ICA PSV). 1. Normal (no stenosis)=ICA PSV < 125 cm/s: ratio < 2.0: ICA EDV<40 cm/s. 2. Less than 50% stenosis=ICA PSV < 125 cm/s: ratio < 2.0: ICA EDV<40 cm/s. 3. 50 to 69% stenosis=ICA PSV of 125 to 230 cm/s: ration 2.0 ? 4.0: ICA EDV 40-100 cm/s. 4. Greater than 70% stenosis to near occlusion= ICA PSV > 230 cm/s: ratio > 4.0: ICA EDV > 100 cm/s. 5. Near occlusion= ICA PSV velocities may be low or undetectable: variable ratio and ICA EDV. 6. Total occlusion=unable to detect flow.
[2024-02-04] MEDS: ASPIRIN 81 MG PO SCH (08:35)
[2024-02-04] MEDS: amLODIPine 5 MG TAB PO SCH (08:35)
--- NOTE | 2024-02-04 09:39 | P.PN ---
Subjective HISTORY OF PRESENT ILLNESS: This is a 83-year-old female with a past medical history significant for hypertension and mild dementia. Patient does not follow with a general neurologist. We have been asked to see the patient in consultation for possible arrhythmia. Patient examined at the bedside by Dr. Bach. Patient was initially taken to [facility] for an episode of syncope. The provider at the outside facility apparently thought the patient had a run of V. tach and the patient was transferred to [facility]. Dr. Charles reviewed telemetry tracings which appear to be artifact. The patient denies any chest pain or pressure. She denies any shortness of breath. Vital signs are stable. DIAGNOSTICS: - EKG reveals sinus mechanism with no signs of acute ischemia - Laboratory data: WBC 6.5. Hemoglobin 13.2. Platelet count 335. Sodium 141. Potassium 3.9. BUN 15. Creatinine 0.7. Magnesium 2.1. Troponin negative x 3. - Current home cardiac medications include amlodipine 2.5 mg daily 02/04/2024 Patient examined this morning at the bedside. Patient denies chest pain or pressure. She denies shortness of breath. She underwent a dobutamine stress test yesterday which was negative for ischemia. Blood pressure elevated this morning with a systolic in the 180s. Echocardiogram completed revealing normal LV systolic function.carotid Doppler reveals 50-60% stenosis of bilateral carotid bifurcations.EKG negative for seizure activity. PHYSICAL EXAM: VITAL SIGNS: Reviewed. GENERAL: Well-developed in no acute distress. HEENT: Head is normocephalic. Pupils are equal, round. Sclerae anicteric. Mucous membranes of the mouth are moist. Neck supple. No JVD or thyromegaly LUNGS: Respirations even and unlabored. Lungs essentially clear to auscultation bilaterally. HEART: Regular rate and rhythm. S1 and S2 heard. ABDOMEN: Soft. Nondistended. Nontender. EXTREMITIES: Normal range of motion. No clubbing or cyanosis. Peripheral pulses intact. No lower extremity edema NEUROLOGIC: Awake and alert. Oriented x 3. ASSESSMENT: Episode of unresponsiveness, etiology unclear status post dobutamine stress echo which was negative for ischemia Ventricular tachycardia, ruled out, telemetry tracing reveals artifact Hypertension Mild dementia bilateral carotid stenosis, 50-69% PLAN: increase amlodipine to 5 mg daily for optimal blood pressure control Patient is currently stable for discharge from a cardiac standpoint Nurse practitioner note has been reviewed by physician. Signing provider agrees with the documented findings, assessment, and plan of care documented by OPERATING ROOM AIDE as a scribe. Objective - Vital Signs Vital signs: Vital Signs Temp 97.8 F 02/04/24 07:00 Pulse 88 02/04/24 07:00 Resp 17 02/04/24 07:00 BP 98/66 02/04/24 09:34 Pulse Ox 97 02/04/24 07:00 FiO2 Intake & Output 02/03/24 02/04/24 02/04/24 18:59 06:59 18:59 Intake Total 0 Balance 0 Weight 55.792 kg Intake: Oral 0 Other: Voiding Method Toilet Toilet # Voids 1 - Labs CBC & Chem 7: 02/02/24 21:26 02/03/24 05:17
--- NOTE | 2024-02-04 16:25 | P.PN ---
Subjective Progress Note Date: 02/04/24 I am following up with the patient and she is accompanied with her daughter and was at bedside. No further syncopal episode or unresponsiveness. She feels back to baseline. Denies any new neurological issues. Objective - Vital Signs Vital signs: Vital Signs Temp 97.8 F 02/04/24 07:00 Pulse 84 02/04/24 14:28 Resp 17 02/04/24 07:00 BP 127/74 02/04/24 14:28 Pulse Ox 97 02/04/24 07:00 FiO2 Intake & Output 02/03/24 02/04/24 02/04/24 18:59 06:59 18:59 Intake Total 118 Balance 118 Weight 55.792 kg Intake: Oral 118 Other: Voiding Method Toilet Toilet # Voids 1 3 # Bowel Movements 2 - Exam GENERAL: The patient is lying in bed and is not in acute distress. NEUROLOGICAL: Limited for overall dementia Higher mental function: The patient is awake, alert, oriented to self, she is in the hospital. Correctly stated the month but the year she stated it was 2027. She is able to follow simple commands but she needed some cueing at times and I had to motivate her to pursue with following commands. No aphasia from limited language. Cranial nerves: The pupils are round, equal and reactive to light and accommodat ion. Pulls are round 3 mm bilaterally. Unable to assess the full visual street because of her cooperation. As well as extraocular movement is limited in assessment. No weakness. No dysarthria. Tongue is midline with moves [id number] without any difficulty. There is no evidence of any tongue bite. Motor: The strength is lifting up all extremities above gravity equally. Normal tone and bulk. It seems that the patient was taken to [facility] for episode of syncope. It seems that the patient had a syncopal episode while seated in the chair but does not recall having any symptoms related to this. And at the outside facility apparently was thought the patient had a run of V. tach lasting for about 15 seconds so the patient was transferred to our facility for escalation of care. Facility patient had CT of the brain which was reported as no acute changes from previous CT. The mixer crane operator did not feel that was V. tach and felt was artifact. Some other workup during this hospital visit consisted of: Othostatic is negative. CBC with differential is unremarkable TSH is 1.06 Calcium, magnesium, AST ALT, sodium, creatinine are within normal limits. Routine EEG: Normal. Carotid duplex: 50-69% stenosis of bilateral carotid bifurcation. 2D echo: Normal LV function. Stress echo: Negative stress test by EKG criteria and negative dobutamine stress echo. - Labs CBC & Chem 7: 02/02/24 21:26 02/03/24 05:17 Assessment and Plan Assessment: This is an 83-year-old woman with history of mild to moderate dementia, chronic dizziness, hypertension who had a syncopal episode and was taken to an outside facility. she passed out while sitting in the chair and the episode lasted for 30 minutes but no jerking of any extremities, foaming around the mouth, urinary or bowel incontinence or tongue bite. She had 5 similar episodes in the past and most of them were while she is sitting and then some episodes she would fall unknown reason. She has chronic dizziness and was evaluated by her neurologist as an outpatient of unknown etiology. She was taken to an outside facility it was felt patient had a run of V. tach lasting 15 seconds and was transferred to our facility for escalation of care. The EKG was reviewed and it was felt it was artifact. She had a CT of the brain at outside facility which was negative for any acute process. Recurrent Syncopal episode of unknown etiology. Routine EEG is normal. Stress echo is negative. Mild to Moderate dementia Chronic dizziness of unknown etiology (follows-up with her neurologist as outpatient and unknown cause) Carotid stenosis of 50-69% stenosis bilaterally on carotid duplex and I doubt that is leading to her syncopal episodes since not significant. Hypertension Dyslipidemia Plan: Pending MRI of the brain Recommend a prolonged EEG as outpatient. This can be coordinated by her outpatient neurologist (Dr. Parra) to capture her episode and rule out seizure or discharges. Regarding her carotid stenosis of 50-69% stenosis bilaterally, she does not want any surgical intervention. Cardiology team is on board. Consider loop recorder or holter monitor for 30 days since having recurrent syncopal episodes Continue cardiac monitoring Patient is on aspirin 81 mg daily and Lipitor 40 mg nightly Will defer the rest of the medical management to primary and other specialist. The plan is discussed with patient and family members who are at bedside. If MRI Brain is negative, then patient is clear from neurological perspective. Time with Patient: Less than 30
--- NOTE | 2024-02-04 19:21 | P.PN ---
Progress Note - Text Progress Note Date: 02/04/24 Patient is an 83-year-old female who was transferred here from [facility] after her family noticed she was difficult to arouse while seated in a chair yesterday. Her daughter is at bedside providing most of the history. Her daughter states that the patient would respond but could not really open her eyes. She states that on the way to the hospital the patient seemed to recover. She states that this is the fifth time. At [facility] she was found to have a run of ventricular tachycardia reportedly 15 beats. The patient does not recall having any symptoms related to this. She denies chest pain, dyspnea, nausea, vomiting, diaphoresis. She is currently without chest pain, nausea, vomiting, dyspnea, diaphoresis, dizziness. She has a history of hypertension and dementia. At [facility]: Chest x-ray unremarkable. CT brain no acute changes from previous CT. At [facility]: CBC and CMP unremarkable. Negative troponin. February 03: This is a patient who follows with Sandra Carson with Dr. Allen. This very pleasant patient sitting up on the bed. Comfortable. Daughter at the bedside. Patient always been very small eater. This morning blood pressures up to 180 systolic. Cardiology started the patient on amlodipine 5 mg and subsequently blood pressure dropped to 98. Systolic I spoke to the nurse. Will follow orthostatics. Later patient's blood pressure not showing any further orthostatic. Will watch today and see how the patient does. Active Medications Amlodipine Besylate (Amlodipine 5 Mg Tab) 5 mg PO DAILY [facility] Last Admin: 02/04/24 08:35 Dose: 5 mg Aspirin (Aspirin 81 Mg) 81 mg PO DAILY [facility] Last Admin: 02/04/24 08:35 Dose: 81 mg Atorvastatin Calcium (Atorvastatin 40 Mg Tab) 40 mg PO HS [facility] Last Admin: 02/03/24 20:39 Dose: 40 mg Sodium Chloride (Saline 0.9%) 1,000 mls @ 20 mls/hr IV .Q24H [facility] Last Admin: 02/03/24 23:14 Dose: Not Given Latanoprost (Latanoprost 0.005% Ophth Drops 2.5 Ml Btl) 1 drops BOTH EYES BID [facility] Last Admin: 02/04/24 08:35 Dose: 1 drops Nitroglycerin (Nitroglycerin Sl Tabs 0.4 Mg Tab) 0.4 mg SUBLINGUAL Q5M PRN PRN Reason: Chest Pain Social history: Lives with her . Does use a walker at baseline. Tobacco: Never smoker Alcohol: Denies INVESTIGATIONS, reviewed in the clinical context: Sodium 141 potassium 3.9 creatinine 0.7 Troponin I x 3 less than 0.012 LDL 178 TSH 1.0 Carotid Doppler less than 70% stenosis bilateral carotid bifurcation. EEG: Negative for epileptiform activity 2D echo: EF 55 to 60%. Dobutamine echocardiogram: Negative for stress Assessment/Plan: -Severe orthostatic hypotension Amlodipine increased this morning to 5 mg daily. Check orthostatics. 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 Essential hypertension, uncontrolled Amlodipine increased to 5 mg a day Echo no wall motion abnormality Cardio following #. Somnolence prior to arrival, appears back to baseline MRI brain pending EEG-negative Neurology following #. 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 Check orthostatic. Pending MRI Past Medical History Past Surgical History: Appendectomy Smoking Status: Never smoker Past Alcohol Use History: None Reported Past Drug Use History: None Reported
[2024-02-04] MEDS: ENOXAPARIN 40 MG/0.4 ML SYRINGE SQ SCH (20:22)
--- NOTE | 2024-02-05 09:45 | P.PN ---
Subjective HISTORY OF PRESENT ILLNESS: This is a 83-year-old female with a past medical history significant for hypertension and mild dementia. Patient does not follow with a manager qa. We have been asked to see the patient in consultation for possible arrhythmia. Patient examined at the bedside by Dr. Bach. Patient was initially taken to [facility] for an episode of syncope. The provider at the outside facility apparently thought the patient had a run of V. tach and the patient was transferred to [facility]. Dr. Charles reviewed telemetry tracings which appear to be artifact. The patient denies any chest pain or pressure. She denies any shortness of breath. Vital signs are stable. DIAGNOSTICS: - EKG reveals sinus mechanism with no signs of acute ischemia - Laboratory data: WBC 6.5. Hemoglobin 13.2. Platelet count 335. Sodium 141. Potassium 3.9. BUN 15. Creatinine 0.7. Magnesium 2.1. Troponin negative x 3. - Current home cardiac medications include amlodipine 2.5 mg daily 02/04/2024 Patient examined this morning at the bedside. Patient denies chest pain or pressure. She denies shortness of breath. She underwent a dobutamine stress test yesterday which was negative for ischemia. Blood pressure elevated this morning with a systolic in the 180s. Echocardiogram completed revealing normal LV systolic function.carotid Doppler reveals 50-60% stenosis of bilateral carotid bifurcations.EKG negative for seizure activity. 02/05/2024 Patient examined this morning at the bedside by Dr. Bach. Patient denies chest pain or pressure. She denies shortness of breath. Blood pressures are labile with systolic readings ranging between [id number]. PHYSICAL EXAM: VITAL SIGNS: Reviewed. GENERAL: Well-developed in no acute distress. HEENT: Head is normocephalic. Pupils are equal, round. Sclerae anicteric. Mucous membranes of the mouth are moist. Neck supple. No JVD or thyromegaly LUNGS: Respirations even and unlabored. Lungs essentially clear to auscultation bilaterally. HEART: Regular rate and rhythm. S1 and S2 heard. ABDOMEN: Soft. Nondistended. Nontender. EXTREMITIES: Normal range of motion. No clubbing or cyanosis. Peripheral pulses intact. No lower extremity edema NEUROLOGIC: Awake and alert. Oriented x 3. ASSESSMENT: Episode of unresponsiveness, etiology unclear status post dobutamine stress echo which was negative for ischemia Ventricular tachycardia, ruled out, telemetry tracing reveals artifact Hypertension Mild dementia bilateral carotid stenosis, 50-69% PLAN: Continue current cardiac medications Patient is currently stable for discharge from a cardiac standpoint We will sign off. Please reconsult if needed. Nurse practitioner note has been reviewed by physician. Signing provider agrees with the documented findings, assessment, and plan of care documented by EDGER LINER as a scribe. Objective - Vital Signs Vital signs: Vital Signs Temp 97.6 F 02/05/24 09:20 Pulse 76 02/05/24 09:20 Resp 17 02/05/24 09:20 BP 110/68 02/05/24 09:20 Pulse Ox 96 02/05/24 09:20 FiO2 Intake & Output 02/04/24 02/05/24 02/05/24 18:59 06:59 18:59 Intake Total 118 Balance 118 Intake: Oral 118 Other: # Voids 3 2 # Bowel Movements 2 - Labs CBC & Chem 7: 02/02/24 21:26 02/03/24 05:17
--- NOTE | 2024-02-05 13:09 | P.PN ---
Subjective Progress Note Date: 02/05/24 I am following up with the patient and she feels she is about the same and does not feel any worse. Patient daughter is at bedside and she agrees order. Denies any neurological issues. Still pending MRI of the brain. Objective - Vital Signs Vital signs: Vital Signs Temp 97.6 F 02/05/24 09:20 Pulse 76 02/05/24 09:20 Resp 17 02/05/24 09:20 BP 110/68 02/05/24 09:20 Pulse Ox 96 02/05/24 09:20 FiO2 Intake & Output 02/04/24 02/05/24 02/05/24 18:59 06:59 18:59 Intake Total 118 Balance 118 Intake: Oral 118 Other: # Voids 3 2 # Bowel Movements 2 - Exam GENERAL: The patient is lying in bed and is not in acute distress. NEUROLOGICAL: Limited for overall dementia Higher mental function: The patient is awake, alert, oriented to self, she is in the hospital. Correctly stated the month but the year she stated it was 2027. She is able to follow simple commands but she needed some cueing at times and I had to motivate her to pursue with following commands. No aphasia from limited language. Cranial nerves: The pupils are round, equal and reactive to light and accommodation. Pulls are round 3 mm bilaterally. Unable to assess the full visual street because of her cooperation. As well as extraocular movement is limited in assessment. No weakness. No dysarthria. Tongue is midline with moves [id number] without any difficulty. There is no evidence of any tongue bite. Motor: The strength is lifting up all extremities above gravity equally. Normal tone and bulk. It seems that the patient was taken to [facility] for episode of syncope. It seems that the patient had a syncopal episode while seated in the chair but does not recall having any symptoms related to this. And at the outside facility apparently was thought the patient had a run of V. tach lasting for about 15 seconds so the patient was transferred to our facility for escalation of care. Facility patient had CT of the brain which was reported as no acute changes from previous CT. The car conditioner did not feel that was V. tach and felt was artifact. Some other workup during this hospital visit consisted of: Othostatic is negative. CBC with differential is unremarkable TSH is 1.06 Calcium, magnesium, AST ALT, sodium, creatinine are within normal limits. Routine EEG: Normal. Carotid duplex: 50-69% stenosis of bilateral carotid bifurcation. 2D echo: Normal LV function. Stress echo: Negative stress test by EKG criteria and negative dobutamine stress echo. - Labs CBC & Chem 7: 02/02/24 21:26 02/03/24 05:17 Assessment and Plan Assessment: This is an 83-year-old woman with history of mild to moderate dementia, chronic dizziness, hypertension who had a syncopal episode and was taken to an outside facility. she passed out while sitting in the chair and the episode lasted for 30 minutes but no jerking of any extremities, foaming around the mouth, urinary or bowel incontinence or tongue bite. She had 5 similar episodes in the past and most of them were while she is sitting and then some episodes she would fall unknown reason. She has chronic dizziness and was evaluated by her neurologist as an outpatient of unknown etiology. She was taken to an outside facility it was felt patient had a run of V. tach lasting 15 seconds and was transferred to our facility for escalation of care. The EKG was reviewed and it was felt it was artifact. She had a CT of the brain at outside facility which was negative for any acute process. Recurrent Syncopal episode of unknown etiology. Routine EEG is normal. Stress echo is negative. Mild to Moderate dementia Chronic dizziness of unknown etiology (follows-up with her neurologist as outpatient and unknown cause) Carotid stenosis of 50-69% stenosis bilaterally on carotid duplex and I doubt that is leading to her syncopal episodes since not significant. Hypertension Dyslipidemia Plan: Pending MRI of the brain Recommend a prolonged EEG as outpatient. This can be coordinated by her outpatient neurologist (Dr. Parra) to capture her episode and rule out seizure or discharges. Regarding her carotid stenosis of 50-69% stenosis bilaterally, she does not want any surgical intervention. Cardiology team is on board. Consider loop recorder or holter monitor for 30 days since having recurrent syncopal episodes Continue cardiac monitoring Patient is on aspirin 81 mg daily and Lipitor 40 mg nightly Will defer the rest of the medical management to primary and other specialist. The plan is discussed with patient and family members who are at bedside. If MRI Brain is negative, then patient is clear from neurological perspective. Time with Patient: Less than 30
--- NOTE | 2024-02-05 17:56 | P.PN ---
Progress Note - Text Progress Note Date: 02/05/24 Patient is an 83-year-old female who was transferred here from [facility] after her family noticed she was difficult to arouse while seated in a chair yesterday. Her daughter is at bedside providing most of the history. Her daughter states that the patient would respond but could not really open her eyes. She states that on the way to the hospital the patient seemed to recover. She states that this is the fifth time. At [facility] she was found to have a run of ventricular tachycardia reportedly 15 beats. The patient does not recall having any symptoms related to this. She denies chest pain, dyspnea, nausea, vomiting, diaphoresis. She is currently without chest pain, nausea, vomiting, dyspnea, diaphoresis, dizziness. She has a history of hypertension and dementia. At [facility]: Chest x-ray unremarkable. CT brain no acute changes from previous CT. At [facility]: CBC and CMP unremarkable. Negative troponin. February 03: This is a patient who follows with Sandra Corley with Dr. Allen. This very pleasant patient sitting up on the bed. Comfortable. Daughter at the bedside. Patient always been very small eater. This morning blood pressures up to 180 systolic. Cardiology started the patient on amlodipine 5 mg and subsequently blood pressure dropped to 98. Systolic I spoke to the nurse. Will follow orthostatics. Later patient's blood pressure not showing any further orthostatic. Will watch today and see how the patient does. February 04: Patient is on amlodipine 5 mg. This morning again, systolic blood pressure 194. Since patient's amlodipine is not lasting the full 24 hours. Will change the patient over to Lopressor 37.5 mg twice daily starting this evening. Discussed with the daughter. Otherwise patient comfortable. Spoke to the daughter patient is left-sided mouth always slightly pulled to the left. Active Medications Aspirin (Aspirin 81 Mg) 81 mg PO DAILY [facility] Last Admin: 02/05/24 08:06 Dose: 81 mg Atorvastatin Calcium (Atorvastatin 40 Mg Tab) 40 mg PO HS [facility] Last Admin: 02/04/24 20:23 Dose: 40 mg Enoxaparin Sodium (Enoxaparin 40 Mg/0.4 Ml Syringe) 40 mg SQ DAILY [facility] Last Admin: 02/05/24 08:07 Dose: Not Given Latanoprost (Latanoprost 0.005% Ophth Drops 2.5 Ml Btl) 1 drops BOTH EYES BID [facility] Last Admin: 02/05/24 12:08 Dose: Not Given Metoprolol Tartrate (Metoprolol Tartrate 25 Mg Tab) 25 mg PO BID [facility] Metoprolol Tartrate (Metoprolol Tartrate 12.5 Mg Tab) 12.5 mg PO BID [facility] Nitroglycerin (Nitroglycerin Sl Tabs 0.4 Mg Tab) 0.4 mg SUBLINGUAL Q5M PRN PRN Reason: Chest Pain Social history: Lives with her . Does use a walker at baseline. Tobacco: Never smoker Alcohol: Denies INVESTIGATIONS, reviewed in the clinical context: Sodium 141 potassium 3.9 creatinine 0.7 Troponin I x 3 less than 0.012 LDL 178 TSH 1.0 Carotid Doppler less than 70% stenosis bilateral carotid bifurcation. EEG: Negative for epileptiform activity 2D echo: EF 55 to 60%. Dobutamine echocardiogram: Negative for stress Assessment/Plan: -Severe orthostatic hypertension Amlodipine 5 mg does not seem to be lasting till morning as blood pressure morning above 180 systolic. Will change to Lopressor 37.5 twice daily starting this evening. 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 Essential hypertension, uncontrolled Amlodipine changed over to Lopressor 37.5 twice daily. Echo no wall motion abnormality Cardio following #. Somnolence prior to arrival, appears back to baseline MRI brain pending EEG-negative Neurology following #. 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 Per patient daughter is doing much better Discussed with daughter. Switch amlodipine to Lopressor Past Medical History Past Surgical History: Appendectomy Smoking Status: Never smoker Past Alcohol Use History: None Reported Past Drug Use History: None Reported
[2024-02-05 19:09] VITALS: RESP 16
[2024-02-05] MEDS: METOPROLOL TARTRATE 12.5 MG TAB PO SCH (20:17)
[2024-02-05] MEDS ORDERED: METOPROLOL TARTRATE 25 MG TAB PO SCH (21:00)
[2024-02-06 07:27] VITALS: TEMP 96.7
[2024-02-06] MEDS: METOPROLOL TARTRATE 12.5 MG TAB PO STA (11:30)
[2024-02-06 12:38] VITALS: BP 149/52; PULSE 60
--- NOTE | 2024-02-06 20:03 | P.DS ---
Providers Date of admission: 02/05/24 10:33 Expected date of discharge: 02/06/24 Attending physician: Mars Zambrano Consults: 02/03/24 07:35 Consult Physician Routine Consulting Provider: James Vyas Consult Reason/Comments: Syncope Do you want consulting provider notified?: Yes Primary care physician: Stated None Hospital Course: Patient is an 83-year-old female who was transferred here from [facility] after her family noticed she was difficult to arouse while seated in a chair yesterday. Her daughter is at bedside providing most of the history. Her daughter states that the patient would respond but could not really open her eyes. She states that on the way to the hospital the patient seemed to recover. She states that this is the fifth time. At [facility] she was found to have a run of ventricular tachycardia reportedly 15 beats. The patient does not recall having any symptoms related to this. She denies chest pain, dyspnea, nausea, vomiting, diaphoresis. She is currently without chest pain, nausea, vomiting, dyspnea, diaphoresis, dizziness. She has a history of hypertension and dementia. At [facility]: Chest x-ray unremarkable. CT brain no acute changes from previous CT. At [facility]: CBC and CMP unremarkable. Negative troponin. February 03: This is a patient who follows with Sandra Corley with Dr. Allen. This very pleasant patient sitting up on the bed. Comfortable. Daughter at the bedside. Patient always been very small eater. This morning blood pressures up to 180 systolic. Cardiology started the patient on amlodipine 5 mg and subsequently blood pressure dropped to 98. Systolic I spoke to the nurse. Will follow orthostatics. Later patient's blood pressure not showing any fur ther orthostatic. Will watch today and see how the patient does. February 04: Patient is on amlodipine 5 mg. This morning again, systolic blood pressure 194. Since patient's amlodipine is not lasting the full 24 hours. Will change the patient over to Lopressor 37.5 mg twice daily starting this evening. Discussed with the daughter. Otherwise patient comfortable. Spoke to the daughter patient is left-sided mouth always slightly pulled to the left. February 05: Patient's blood pressure medications been changed to Lopressor 50 mg twice daily. She did well. Walked up and down the hallway. Spoke to the daughter and nurse. Repeat blood pressures were checked.. Follow-up with her PCP. Discussion and discharge planning more than 35 minutes On examination: VITAL SIGNS: Afebrile, 60, 16, 149 x 52 [] GENERAL APPEARANCE: Comfortable HEENT: Normal external appearance of nose and ear. Oral cavity normal EYES: Pupils equal. Conjunctiva normal. NECK: JVD not raised. Mass not palpable. RESPIRATORY: Respiratory effort normal. Lungs clear to auscultation. CARDIOVASCULAR: First and second sounds normal. No edema. ABDOMEN: Soft. Liver and spleen not palpable. No tenderness. No mass palpable. PSYCHIATRY: Alert and oriented x3. Mood and affect normal. Social history: Lives with her . Does use a walker at baseline. Tobacco: Never smoker Alcohol: Denies INVESTIGATIONS, reviewed in the clinical context: Sodium 141 potassium 3.9 creatinine 0.7 Troponin I x 3 less than 0.012 LDL 178 TSH 1.0 Carotid Doppler less than 70% stenosis bilateral carotid bifurcation. EEG: Negative for epileptiform activity 2D echo: EF 55 to 60%. Dobutamine echocardiogram: Negative for stress Assessment/Plan: -Severe orthostatic hypertension: Improved Amlodipine 5 mg does not seem to be lasting till morning as blood pressure morning above 180 systolic. 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 Essential hypertension, improved Amlodipine changed over to Lopressor 50 mg twice daily. Echo no wall motion abnormality Cardio following #. Somnolence prior to arrival, appears back to baseline, probably from Namenda MRI brain pending EEG-negative Neurology following -Hyperlipidemia Lipitor 40 mg nightly #. 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 Per patient daughter is doing much better -Full code Disposition: Home with Past Medical History Past Surgical History: Appendectomy Smoking Status: Never smoker Past Alcohol Use History: None Reported Past Drug Use History: None Reported Plan - Discharge Summary New Discharge Prescriptions: New Atorvastatin [Lipitor] 40 mg PO HS #30 tab Metoprolol Tartrate [Lopressor] 50 mg PO BID #60 tab Aspirin 81 mg PO DAILY tab Continue Brimonidine Tartrate/Timolol [Brimonidine-Timolol 0.2%-0.5%] 1 drop BOTH EYES QAM Latanoprost [Xalatan 0.005%] 1 drop BOTH EYES HS Discontinued amLODIPine [Norvasc] 2.5 mg PO DAILY@1400 Memantine [Namenda] 10 mg PO HS Discharge Medication List Latanoprost [Xalatan 0.005%] 1 drop BOTH EYES HS 07/25/21 [History] Brimonidine Tartrate/Timolol [Brimonidine-Timolol 0.2%-0.5%] 1 drop BOTH EYES QAM 02/03/24 [History] Aspirin 81 mg PO DAILY tab 02/06/24 [Rx] Atorvastatin [Lipitor] 40 mg PO HS #30 tab 02/06/24 [Rx] Metoprolol Tartrate [Lopressor] 50 mg PO BID #60 tab 02/06/24 [Rx] Follow up Appointment(s)/Referral(s): Sandra Martinez NPC [REFERRING] - 1 Week James Powell MD [STAFF PHYSICIAN] - 2 Weeks Osmar Bach MD [STAFF PHYSICIAN] - 6 Weeks Patient Instructions/Handouts: Syncope (DC) Discharge Disposition: HOME SELF-CARE
== END 2024-02-06 14:16 | disposition home or self-care (01) | DRG 312 ==
LOC: EC 21:03 → 6NMEDSUR 22:07 → OBSVTOIN 02-05 10:33
PROVIDERS: ADMIT Hospitalist; ATTEND Hospitalist
DX: I95.1 Orthostatic hypotension (principal); I47.20 Ventricular tachycardia, unspecified; E78.5 Hyperlipidemia, unspecified; R26.9 Unspecified abnormalities of gait and mobility; G30.1 Alzheimer's disease with late onset; F02.A0 Dementia in other diseases classified elsewhere, mild, without behavioral disturbance, psychotic disturbance, mood disturbance, and anxiety; I10 Essential (primary) hypertension; I65.23 Occlusion and stenosis of bilateral carotid arteries; Z79.82 Long term (current) use of aspirin; Z79.899 Other long term (current) drug therapy
CPT/HCPCS: 36415; 80048; 80053; 80061; 83735; 84443; 84484; 85025; 93005; 93306; 93351; 93880; 95816; 99285